=== PATIENT | male | born 2000 | race Caucasian/White ===

== ENCOUNTER 2019-10-13 21:31 | Emergency (ER) | payer OTHER ==
[~2019-10-13] VITALS: Ht 177.8 cm; Wt 81.9 kg
[2019-10-13 21:32] VITALS: BP 128/81
[2019-10-13] MEDS ORDERED: PAXI10TA12 PO (21:54)
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
== END 2019-10-14 00:38 | disposition home or self-care (01) ==
LOC: M ED 21:31
DX: S09.90XA Unspecified injury of head, initial encounter (principal); R51 Headache; V86.14XA Passenger of military vehicle injured in traffic accident, initial encounter; Y99.1 Military activity; Z79.899 Other long term (current) drug therapy